=== PATIENT | female | born 1950 | race Caucasian/White ===

== ENCOUNTER → 2019-10-31 | Outpatient (CLI) | payer MEDICARE ==
--- NOTE | 2019-10-31 12:21 | Diagnostic Imaging Report ---
INDICATION: Postmenopausal family history of osteoporosis. COMPARISON: None FINDINGS: The bone mineral density of the hips and spine was measured. The T score for the spine is -2.6. This does indicate osteoporosis. The total T score for the left hip is -1.8 and for the right hip -1.6. The T score for the left femoral neck is -2.0 and for the right femoral neck -1.9. All these findings fall in the range of osteopenia. AP Spine L1-L4: [BMD (g/cm2): 0.891] [T-Score: -2.6] [Z-Score: -0.7] [BMD Previous: NA] [BMD % Change: NA] LT Hip Neck: [BMD (g/cm2): 0.763] [T-Score: -2.0] [Z-Score: -0.1] LT Hip Total: [BMD (g/cm2):0.785] [T-Score:-1.8] [Z-Score: -0.1] [BMD Previous: NA] [BMD % Change: NA] RT Hip Neck: [BMD (g/cm2):0.780] [T-Score:-1.9] [Z-Score:0.0] RT Hip Total: [BMD (g/cm2):0.811] [T-score:-1.6] [Z-Score:0.1] [BMD Previous:NA] [BMD % Change:NA] *Indicates significant change from prior examination based on 95% confidence level. World Health Organization criteria for BMD interpretation classify patients as Normal (T-score at or above -1.0), Osteopenic (T-score between -1.0 and -2.5) or Osteoporotic (T-score at or below -2.5). LIMITATIONS AND MODIFICATION: None. FRACTURE RISK (FRAX SCORE): The ten year probability of (%): Major Osteoporotic Fracture: [19.7] Hip Fracture: [6.9] IMPRESSION: 1. The total T score for the spine does indicate osteoporosis. 2. There is osteopenia of the hips and femoral necks. 3. See below National Osteoporosis Foundation guidelines on when to potentially initiate pharmacologic therapy. Based on the National Osteoporosis Foundation Guidelines, pharmacologic treatment should be initiated in any of the following, unless clinical conditions suggest otherwise: * Any patient with prior fragility fracture of the hip or vertebrae. A spine fracture indicates 5X risk for subsequent spine fracture and 2X risk for subsequent hip fracture. * Osteoporosis (T-score <-2.5). * Postmenopausal women and men age 50 and older with low bone mass/osteopenia (T-score between -1.0 and -2.5) by DXA and 10-year major osteoporotic fracture greater than 20% or a 10-year probability of hip fracture greater than 3%. These fracture risks are supplied above in the FRAX score, if applicable. * Clinician judgement and/or patient preferences may indicate treatment for people with 10-year fracture probabilities above or below these levels. Dictated by: Dictated on workstation # [id number]
== END ==
LOC: RAD 09:00
PROVIDERS: ATTEND Family Medicine
DX: Z12.31 Encounter for screening mammogram for malignant neoplasm of breast (principal); M85.88 Other specified disorders of bone density and structure, other site; Z78.0 Asymptomatic menopausal state; Z82.62 Family history of osteoporosis
CPT/HCPCS: 77063; 77067; 77080

== ENCOUNTER 2019-11-29 08:36 | Outpatient (CLI) | payer MEDICARE ==
[~2019-11-29] VITALS: Ht 157.5 cm; Wt 60.0 kg
[2019-11-29] MEDS ORDERED: DENOSUMAB 60 MG/1 ML (PROLIA) SQ SCH (09:00)
[2019-11-29 09:30] VITALS: BP 122/66
[2019-11-29] MEDS ORDERED: LEVO75TA6 PO ×2 (13:54→13:57)
== END 2019-11-29 09:30 | disposition home or self-care (01) ==
LOC: SDC 08:36
PROVIDERS: ATTEND Nurse Practitioner Family
DX: M81.0 Age-related osteoporosis without current pathological fracture (principal)
CPT/HCPCS: 96372

== ENCOUNTER → 2020-05-31 | Outpatient (CLI) | payer MEDICARE ==
[~2020-05-31] MED LIST: DENOSUMAB 60 MG/1 ML (PROLIA) SQ SCH; LEVO75TA6 PO
[2020-05-31 13:30] VITALS: BP 130/72
== END ==
LOC: SDC 12:51
PROVIDERS: ATTEND Nurse Practitioner Family
DX: M81.0 Age-related osteoporosis without current pathological fracture (principal)
CPT/HCPCS: 96372

== ENCOUNTER → 2020-10-31 | Outpatient (CLI) | payer MEDICARE ==
[~2020-10-31] MED LIST changes: -DENOSUMAB 60 MG/1 ML (PROLIA) SQ SCH
--- NOTE | 2020-10-31 12:10 | Diagnostic Imaging Report ---
INDICATION: Routine screening. COMPARISON is made with prior mammogram 10/31/2019 and 09/01/2018. 2-D and 3-D bilateral screening mammography was performed with CAD. Scattered fibroglandular densities are identified bilaterally. The parenchymal pattern is stable. No mass or malignant-appearing microcalcifications are seen. Axillae are unremarkable. IMPRESSION: BI-RADS Category 2 No mammographic features suspicious for malignancy are identified. ACR BI-RADS Category 2: Benign findings. Result letter will be mailed to the patient. Note: At least 10% of breast cancer is not imaged by mammography. Dictated by: Dictated on workstation # [id number]
== END ==
LOC: RAD 10:30
PROVIDERS: ATTEND Nurse Practitioner Family
DX: Z12.31 Encounter for screening mammogram for malignant neoplasm of breast (principal)
CPT/HCPCS: 77063; 77067

== ENCOUNTER 2020-12-31 10:01 | Outpatient (CLI) | payer MEDICARE ==
[~2020-12-31] VITALS: Ht 156.2 cm; Wt 61.4 kg
[2020-12-31] MEDS ORDERED: DENOSUMAB 60 MG/1 ML (PROLIA) SQ SCH (10:30)
[2020-12-31 10:38] VITALS: BP 110/61
== END 2020-12-31 10:38 | disposition home or self-care (01) ==
LOC: SDC 10:01
PROVIDERS: ATTEND Nurse Practitioner Family
DX: M81.0 Age-related osteoporosis without current pathological fracture (principal)
CPT/HCPCS: 96372

== ENCOUNTER → 2021-07-01 | Outpatient (CLI) | payer MEDICARE ==
[~2021-07-01] VITALS: Ht 156.2 cm; Wt 61.4 kg
[~2021-07-01] MED LIST changes: +ATOR10TA66 PO; +CO Q-10 PO; +DENOSUMAB 60 MG/1 ML (PROLIA) SQ SCH; +MAGN200T8 PO
[2021-07-01 09:54] VITALS: BP 114/56
== END ==
LOC: SDC 09:51
PROVIDERS: ATTEND Nurse Practitioner Family
DX: M81.0 Age-related osteoporosis without current pathological fracture (principal)
CPT/HCPCS: 96372

== ENCOUNTER → 2022-01-07 | Outpatient (CLI) | payer MEDICARE ==
[~2022-01-07] VITALS: Ht 156.2 cm; Wt 61.4 kg
[~2022-01-07] MED LIST changes: +DENOSUMAB 60 MG/1 ML (PROLIA) SQ ONE; -DENOSUMAB 60 MG/1 ML (PROLIA) SQ SCH
[2022-01-07 11:46] VITALS: BP 105/63
== END ==
LOC: SDC 11:20
PROVIDERS: ATTEND Nurse Practitioner Family
DX: M81.0 Age-related osteoporosis without current pathological fracture (principal)
CPT/HCPCS: 96372

== ENCOUNTER → 2022-03-17 | Outpatient (CLI) | payer MEDICARE ==
[~2022-03-17] MED LIST changes: -DENOSUMAB 60 MG/1 ML (PROLIA) SQ ONE
--- NOTE | 2022-03-17 17:08 | Diagnostic Imaging Report ---
INDICATION: Routine screening. Comparison is made with prior mammogram of 10/31/2020 and 10/31/2019. 2-D and 3-D bilateral screening mammography was performed with CAD. Both breasts are heterogeneously dense, limiting the sensitivity of mammography. The parenchymal pattern is stable. No mass or malignant-appearing microcalcifications are seen. There are benign calcifications of the left axilla. Axillae are otherwise unremarkable. IMPRESSION: No mammographic features suspicious for malignancy are identified. ACR BI-RADS Category 2: Benign findings. Result letter will be mailed to the patient. Note: At least 10% of breast cancer is not imaged by mammography. BI-RADS Category 2 Dictated by: Dictated on workstation # [id number]
--- NOTE | 2022-03-17 17:20 | Diagnostic Imaging Report ---
INDICATION: Postmenopausal screening for osteoporosis COMPARISON: 10/31/2019 FINDINGS: AP Spine L1-L4: [BMD (g/cm2): 0.901] [T-Score: -2.5] [Z-Score: -0.7] [BMD Previous: 0.891] [BMD % Change: 1.1] LT Hip Neck: [BMD (g/cm2): 0.771] [T-Score: -1.9] [Z-Score: 0.0] LT Hip Total: [BMD (g/cm2):0.826] [T-Score:-1.4] [Z-Score: 0.3] [BMD Previous: 0.785] [BMD % Change: 5.2] RT Hip Neck: [BMD (g/cm2):0.778] [T-Score:-1.9] [Z-Score:0.1] RT Hip Total: [BMD (g/cm2):0.827] [T-score:-1.4] [Z-Score:0.3] [BMD Previous:0.811] [BMD % Change:2.0] *Indicates significant change from prior examination based on 95% confidence level. World Health Organization criteria for BMD interpretation classify patients as Normal (T-score at or above -1.0), Osteopenic (T-score between -1.0 and -2.5) or Osteoporotic (T-score at or below -2.5). LIMITATIONS AND MODIFICATION: None. FRACTURE RISK (FRAX SCORE): The ten year probability of (%): Major Osteoporotic Fracture: [21.5] Hip Fracture: [10.7] IMPRESSION: 1. Osteopenia (Low bone mass). 2. No significant change in bone mineral density since prior examination. 3. See below National Osteoporosis Foundation guidelines on when to potentially initiate pharmacologic therapy. Based on the National Osteoporosis Foundation Guidelines, pharmacologic treatment should be initiated in any of the following, unless clinical conditions suggest otherwise: * Any patient with prior fragility fracture of the hip or vertebrae. A spine fracture indicates 5X risk for subsequent spine fracture and 2X risk for subsequent hip fracture. * Osteoporosis (T-score <-2.5). * Postmenopausal women and men age 50 and older with low bone mass/osteopenia (T-score between -1.0 and -2.5) by DXA and 10-year major osteoporotic fracture greater than 20% or a 10-year probability of hip fracture greater than 3%. These fracture risks are supplied above in the FRAX score, if applicable. * Clinician judgement and/or patient preferences may indicate treatment for people with 10-year fracture probabilities above or below these levels. Dictated by: Dictated on workstation # [id number]
== END ==
LOC: RAD 13:10
PROVIDERS: ATTEND Family Medicine
DX: Z12.31 Encounter for screening mammogram for malignant neoplasm of breast (principal); Z13.820 Encounter for screening for osteoporosis; M81.0 Age-related osteoporosis without current pathological fracture; M85.80 Other specified disorders of bone density and structure, unspecified site; Z78.0 Asymptomatic menopausal state
CPT/HCPCS: 77063; 77067; 77080

== ENCOUNTER → 2022-07-14 | Outpatient (CLI) | payer MEDICARE ==
[~2022-07-14] VITALS: Ht 157 cm; Wt 61.4 kg
[~2022-07-14] MED LIST changes: +DENOSUMAB 60 MG/1 ML (PROLIA) SQ ONE
[2022-07-14 12:08] VITALS: BP 123/62
== END ==
LOC: SDC 11:14
PROVIDERS: ATTEND Nurse Practitioner Family
DX: M81.0 Age-related osteoporosis without current pathological fracture (principal)
CPT/HCPCS: 96372

== ENCOUNTER → 2023-01-21 | Outpatient (CLI) | payer MEDICARE ==
[~2023-01-21] VITALS: Wt 61.4 kg
[2023-01-21 10:23] VITALS: BP 125/62
== END ==
LOC: SDC 10:02
PROVIDERS: ATTEND Nurse Practitioner
DX: M81.0 Age-related osteoporosis without current pathological fracture (principal)
CPT/HCPCS: 96372